=== PATIENT | female | born 1970 | race Caucasian/White ===

== ENCOUNTER → 2018-07-24 13:32 | Outpatient (REF) | payer OTHER, SELFPAY | LOC: LAB 13:32 | PROVIDERS: PCP Nurse Practitioner; Visit Provider Otolaryngology | DX: J32.8 Other chronic sinusitis (principal); J34.0 Abscess, furuncle and carbuncle of nose | CPT/HCPCS: 87070; 87147 ==

== ENCOUNTER 2023-11-06 13:05 | Emergency (ER) | payer OTHER, SELFPAY ==
[2023-11-06] VITALS (16 sets, daily range): BP systolic 131–198; BP diastolic 68–95; PULSE 52–72; RESP 18; TEMP 36.6–36.9; O2SAT 93–99; BMI 36.8
--- NOTE | 2023-11-06 13:26 | DI.CT.S_ITS ---
PROCEDURE: CT HEAD/BRAIN WO CON INDICATIONS: severe headache TECHNIQUE: Noncontrast 4.5 mm thick angled axial sections acquired from the foramen magnum to the vertex, with coronal and sagittal reformats. For radiation dose reduction, the following was used: automated exposure control, adjustment of mA and/or kV according to patient size. COMPARISON: None. FINDINGS: Image quality: Diagnostic CSF spaces: Basal cisterns are patent. Lateral ventricles are symmetric. Volume: Generally maintained. Brain: No intracranial hemorrhage. Nassar-white differentiation is grossly maintained. Craniofacial structures: Empty sella incidentally noted. No significant craniofacial abnormality where visualized. IMPRESSION: No acute intracranial abnormality. If there is high concern for parenchymal pathology, consider further evaluation with MRI. Dictated by: Fabio Lindsey M.D. on 11/06/2023 at 14:27 Approved by: Fabio Lindsey M.D. on 11/06/2023 at 14:28
[2023-11-06 14:56] LABS: INR 1.2 (0.9-1.3); Prothrombin Time 13.4 SECONDS (9.4-12.5)
[2023-11-06 14:58] LABS: Add Manual Diff / Slide Review NO; Basophils Absolute Auto 100 /uL (0-100); Basophils Percent Auto 1.1 % (0-2); Eosinophils Absolute Auto 100 /uL (0-450); Eosinophils Percent Auto 1.7 % (2-4); Hematocrit 39.8 % (36-46); Hemoglobin 13.6 g/dL (12.0-16.0); Lymphocytes Absolute Auto 1900 /uL (1100-4500); Lymphocytes Percent Auto 24.3 % (25-40); Mean Corpuscular HGB Conc 34.2 % (30-36); Mean Corpuscular Hemoglobin 29.6 PG (26-34); Mean Corpuscular Volume 86.4 fL (80-100); Monocytes Absolute Auto 700 /uL (0-900); Monocytes Percent Auto 8.4 % (3-14); Neutrophils Absolute Auto 5200 /uL (1500-7000); Neutrophils Percent Auto 64.5 % (50-75); Platelet Count 184 X10^3/uL (150-400); Red Cell Distribution Width 13.6 % (11.6-14.8)
[2023-11-06 14:59] LABS: PTT Partial Thromboplastin Tim 36 SECONDS (25.1-36.5)
--- NOTE | 2023-11-06 15:01 | PC.NURSE ---
patient comes in with complaints of headache and hx of ARTEAGA with migrain. She has been having headaches, vertigo, numbness in left face, L eye blurry vision, and reported trouble with saying huckleberry. She says this is similar to a migraine/ stroke that she had 11 years ago.
[2023-11-06 15:14] LABS: UR Morphine/Opiate cutoff 300 Negative (Negative); Ur Creatinine Normal (Normal); Ur Specific Gravity Normal (Normal); Urine Amphetamines Negative (Negative); Urine Barbiturates Negative (Negative); Urine Benzodiazepines Negative (Negative); Urine Cocaine Negative (Negative); Urine MDMA Negative (Negative); Urine Methadone Negative (Negative); Urine Methamphetamines Negative (Negative); Urine Oxycodone Negative (Negative); Urine Phencyclidine Negative (Negative); Urine Tetrahydrocannabinol Negative (Negative); Urine Tricyclic Antidepressant Negative (Negative); Urine pH Normal (Normal)
[2023-11-06 15:26] LABS: COVID19 -Nasal RAPID Negative (Negative)
--- NOTE | 2023-11-06 15:29 | ED_ITS ---
HPI - Neuro Symptoms/Deficit General Chief Complaint: Neuro Symptoms/Deficit Stated Complaint: slurred speech, BP 220/110 Time Seen by Provider: 11/06/23 13:25 Source: patient Mode of arrival: Wheelchair History of Present Illness HPI Narrative: Patient is a 53-year-old female history of complicated migraines, hypertension presenting today with ongoing migraine headache. She reports that she really had a migraine headache and a number of years Botox was working. She says that her pain tolerance got to be so high she did not really know that she was having migraines until she had slurring of speech and visual changes. She reports that 5 days ago she started a migraine headache and some visual changes she slept for about 15 hours. She has had some ongoing slurring of speech and today she noted some left facial numbness. This is not uncommon for her migraine headaches. This happened to her regularly. She was followed by Neurology. She has no numbness tingling or weakness. I do not appreciate any slurring of speech upon questioning. No significant nausea or vomiting. She overall appears well she has not had any fever chills or neck pain. On Anticoagulants: No (81mg aspirin) Related Data Previous Rx's Medication Instructions Recorded rizatriptan 10 mg tablet 10 mg PO .COMPLEX PRN migraine 01/22/18 headache #12 tabs verapamil 240 mg 24 hr 240 mg PO QDAY #90 caps 02/12/18 capsule,extended release onabotulinumtoxinA 200 unit 200 unit IM .COMPLEX #1 ea 03/18/18 solution for injection (Botox) candesartan 16 mg tablet 16 mg PO DAILY #30 tabs 08/06/18 candesartan 16 mg tablet 16 mg PO DAILY #30 tabs 08/06/18 Allergies Allergy/AdvReac Type Severity Reaction Status Date / Time topiramate [From Topamax] Allergy Mild Verified 02/12/18 13:06 Sulfa (Sulfonamide Allergy ITCHING Verified 11/06/23 13:10 Antibiotics) MORPHINE Allergy Mild Uncoded 02/12/18 13:06 HAYFEVER Allergy Unknown Uncoded 02/12/18 13:06 Review of Systems Hematologic/Lymphatic On Anticoagulants: No (81mg aspirin) Patient History Social History Smoking Status: Former smoker Smoking Status: Former smoker alcohol intake frequency: holidays/special occasions only Substance Use Type: does not use Exam Initial Vital Signs Initial Vital Signs: Vital Signs Temperature 98.5 F 11/06/23 13:10 Pulse Rate 70 11/06/23 13:10 Respiratory Rate 18 11/06/23 13:10 Blood Pressure 198/95 H 11/06/23 13:10 Pulse Oximetry 99 11/06/23 13:10 Oxygen Delivery Method Room Air 11/06/23 13:10 GENERAL: Alert pleasant well-appearing 53-year-old female and in no acute distress. HEENT: Head atraumatic,EOMI, pupils reactive, face symmetric, moist mucous membranes CARDIOVASCULAR: Regular rate and rhythm without murmurs, rubs or gallops. RESPIRATORY: Breath sounds equal bilaterally, no wheezes rales or rhonchi. ABDOMEN: Soft, nontender. Normoactive bowel sounds all 4 quadrants. No guarding or rebound. EXTREMITIES: Normal range of motion, no clubbing or edema. Neurovascularly intact NEUROLOGICAL: Alert and oriented x4.Normal gait and speech. Cranial nerves II through XII grossly intact. Good [id number], good [id number], strength equal bilaterally, no dysarthria or aphasia, sensation in tact to soft touch bilaterally, no visual changes, no facial droop SKIN: Warm, dry, no laceration, no petechiae, no rashes or lesions. Scores NIH Stroke Scale Level of Conciousness: Alert, keenly responsive Ask month/age: Answers both questions correctly. Open/close eyes, close hand: Performs both tasks correctly Best gaze horizontal: Normal Visual tellez: No visual loss Facial palsy: Normal symetrical movement Left arm drift: No drift for full 10 sec Right arm drift: No drift for full 10 sec Left leg drift: No drift for full 5 sec Right leg drift: No drift for full 5 sec Limb ataxia: Absent Sensory on face/arms/legs: Normal, no sensory loss Best language: No aphasia, normal Dysarthria: Normal Extinction or inattention: No abnormality Total NIH Stroke scale score: 0 Course Orders Ordered: Discontinued Medications Diphenhydramine HCl (Diphenhydramine 50 Mg/Ml Vial) 25 mg IV NOW ONE Stop: 11/06/23 13:27 Last Admin: 11/06/23 15:34 Dose: 25 mg Documented By: SPF Sodium Chloride (Normal Saline 0.9%) 1,000 mls @ 1,000 mls/hr IV BOLUS ONE Stop: 11/06/23 14:25 Last Infusion: 11/06/23 17:04 Dose: Infused Documented By: Admin: 11/06/23 15:33 Dose: 1,000 mls/hr Documented By: KRISTIAN Ketorolac Tromethamine (Ketorolac 30 Mg/Ml Vial) 15 mg IV NOW ONE Stop: 11/06/23 13:27 Last Admin: 11/06/23 15:34 Dose: 15 mg Documented By: KRISTIAN Prochlorperazine (Prochlorperazine 10 Mg/2 Ml Vial) 10 mg IV NOW ONE Stop: 11/06/23 13:27 Last Admin: 11/06/23 15:42 Dose: 10 mg Documented By: KRISTIAN Vital Signs Vital signs: Vital Signs - 8 hr 11/06/23 13:10 Temperature 98.5 F Pulse Rate 70 Respiratory Rate 18 Blood Pressure 198/95 H Pulse Oximetry 99 Oxygen Delivery Method Room Air MDM - Neuro Symptoms/Deficit Lab Data 11/06/23 14:39 11/06/23 14:39 Labs: Lab Results 11/06/23 11/06/23 11/06/23 Range/Units 14:15 14:15 14:15 WBC (4.5-11.0) X10^3/uL RBC (4.0-5.2) X10^6/uL Hgb (12.0-16.0) g/dL Hct (36-46) % MCV (80-100) fL MCH (26-34) PG MCHC (30-36) % RDW (11.6-14.8) % Plt Count (150-400) X10^3/uL Neut % (Auto) (50-75) % Lymph % (Auto) (25-40) % Ransom % (Auto) (3-14) % Eos % (Auto) (2-4) % Baso % (Auto) (0-2) % Neut # (Auto) (6372-2352) /uL Lymph # (Auto) (1202-4004) /uL Ransom # (Auto) (0-900) /uL Eos # (Auto) (0-450) /uL Baso # (Auto) (0-100) /uL PT (9.4-12.5) SECONDS INR (0.9-1.3) APTT (25.1-36.5) SECONDS Sodium (137-145) mmol/L Potassium (3.4-5.1) mmol/L Chloride (98-107) mmol/L Carbon Dioxide (22-32) mmol/L BUN (7-17) mg/dL Creatinine (0.52-1.04) mg/dL Estimated GFR (>60) mL/min BUN/Creatinine Ratio (6-22) Glucose (70-100) mg/dL Calcium (8.4-10.2) mg/dL Total Bilirubin (0.2-1.3) mg/dL AST (14-36) IU/L ALT (<35) IU/L Alkaline Phosphatase (38-126) U/L Total Creatine Kinase (30-135) U/L Troponin I (0.01-0.034) ng/mL Total Protein (6.3-8.2) g/dL Albumin (3.5-5.0) g/dL Globulin (1.7-4.1) g/dL Albumin/Globulin Ratio (1.0-2.8) Urine Color Cancelled Urine Appearance Cancelled Urine pH Cancelled Ur Specific [place] Cancelled Urine Protein Cancelled Urine Glucose (UA) Cancelled Urine Ketones Cancelled Urine Occult Blood Cancelled Urine Nitrate Cancelled Urine Bilirubin Cancelled Urine Urobilinogen Cancelled Ur Leukocyte Esterase Cancelled Urine RBC None seen Cancelled (0-5/HPF) Urine WBC 1-5/hpf Cancelled (0-5/HPF) Ur Squamous Epith Cells 1-5 /hpf (0-5/HPF) Ur Transition Epith Cell Ur Renal Epithelial Cell Calcium Oxalate Crystal Uric Acid Crystals Triple Phos Crystals Other Crystals Amorphous Sediment Urine Bacteria (None) Hyaline Casts Granular Casts RBC Casts WBC Casts Other Casts Urine Mucus Urine Trichomonas Urine Yeast Urine Sperm Ur Culture Indicated? Micro UA Comment Vol Urine Centrifuged U Opiates 300ng/mL cut (Negative) Ur Oxycodone Screen (Negative) Urine Methadone Screen (Negative) Ur Barbiturates Screen (Negative) U Tricyclic Antidepress (Negative) Ur Phencyclidine Scrn (Negative) Ur Amphetamines Screen (Negative) U Methamphetamines Scrn (Negative) Ur MDMA Scrn (Ecstasy) (Negative) U Benzodiazepines Scrn (Negative) Urine Cocaine Screen (Negative) U Marijuana (THC) Screen (Negative) Urine Specific [place] (Normal) Ethyl Alcohol ( - 10) mg/dL Ur Creatinine (Normal) SARS-CoV-2 (PCR) (Negative) 11/06/23 11/06/23 11/06/23 Range/Units 14:15 14:15 14:15 WBC (4.5-11.0) X10^3/uL RBC (4.0-5.2) X10^6/uL Hgb (12.0-16.0) g/dL Hct (36-46) % MCV (80-100) fL MCH (26-34) PG MCHC (30-36) % RDW (11.6-14.8) % Plt Count (150-400) X10^3/uL Neut % (Auto) (50-75) % Lymph % (Auto) (25-40) % Ransom % (Auto) (3-14) % Eos % (Auto) (2-4) % Baso % (Auto) (0-2) % Neut # (Auto) (4179-4804) /uL Lymph # (Auto) (9159-3553) /uL Ransom # (Auto) (0-900) /uL Eos # (Auto) (0-450) /uL Baso # (Auto) (0-100) /uL PT (9.4-12.5) SECONDS INR (0.9-1.3) APTT (25.1-36.5) SECONDS Sodium (137-145) mmol/L Potassium (3.4-5.1) mmol/L Chloride (98-107) mmol/L Carbon Dioxide (22-32) mmol/L BUN (7-17) mg/dL Creatinine (0.52-1.04) mg/dL Estimated GFR (>60) mL/min BUN/Creatinine Ratio (6-22) Glucose (70-100) mg/dL Calcium (8.4-10.2) mg/dL Total Bilirubin (0.2-1.3) mg/dL AST (14-36) IU/L ALT (<35) IU/L Alkaline Phosphatase (38-126) U/L Total Creatine Kinase (30-135) U/L Troponin I (0.01-0.034) ng/mL Total Protein (6.3-8.2) g/dL Albumin (3.5-5.0) g/dL Globulin (1.7-4.1) g/dL Albumin/Globulin Ratio (1.0-2.8) Urine Color Urine Appearance Urine pH Ur Specific [place] Urine Protein Urine Glucose (UA) Urine Ketones Urine Occult Blood Urine Nitrate Urine Bilirubin Urine Urobilinogen Ur Leukocyte Esterase Urine RBC (0-5/HPF) Urine WBC (0-5/HPF) Ur Squamous Epith Cells Cancelled (0-5/HPF) Ur Transition Epith Cell Cancelled Ur Renal Epithelial Cell Cancelled Calcium Oxalate Crystal Cancelled Uric Acid Crystals Cancelled Triple Phos Crystals Cancelled Other Crystals Cancelled Amorphous Sediment Cancelled Urine Bacteria None seen Cancelled (None) Hyaline Casts Cancelled Granular Casts Cancelled RBC Casts Cancelled WBC Casts Cancelled Other Casts Cancelled Urine Mucus Cancelled Urine Trichomonas Cancelled Urine Yeast Cancelled Urine Sperm Cancelled Ur Culture Indicated? Specimen cultured Cancelled Micro UA Comment Cancelled Vol Urine Centrifuged 10ml (spun) U Opiates 300ng/mL cut (Negative) Ur Oxycodone Screen (Negative) Urine Methadone Screen (Negative) Ur Barbiturates Screen (Negative) U Tricyclic Antidepress (Negative) Ur Phencyclidine Scrn (Negative) Ur Amphetamines Screen (Negative) U Methamphetamines Scrn (Negative) Ur MDMA Scrn (Ecstasy) (Negative) U Benzodiazepines Scrn (Negative) Urine Cocaine Screen (Negative) U Marijuana (THC) Screen (Negative) Urine Specific [place] (Normal) Ethyl Alcohol ( - 10) mg/dL Ur Creatinine (Normal) SARS-CoV-2 (PCR) (Negative) 11/06/23 11/06/23 11/06/23 Range/Units 14:15 14:39 14:59 WBC 8.0 (4.5-11.0) X10^3/uL RBC 4.60 (4.0-5.2) X10^6/uL Hgb 13.6 (12.0-16.0) g/dL Hct 39.8 (36-46) % MCV 86.4 (80-100) fL MCH 29.6 (26-34) PG MCHC 34.2 (30-36) % RDW 13.6 (11.6-14.8) % Plt Count 184 (150-400) X10^3/uL Neut % (Auto) 64.5 (50-75) % Lymph % (Auto) 24.3 L (25-40) % Ransom % (Auto) 8.4 (3-14) % Eos % (Auto) 1.7 L (2-4) % Baso % (Auto) 1.1 (0-2) % Neut # (Auto) 5200 (3669-8541) /uL Lymph # (Auto) 1900 (7705-1679) /uL Ransom # (Auto) 700 (0-900) /uL Eos # (Auto) 100 (0-450) /uL Baso # (Auto) 100 (0-100) /uL PT 13.4 H (9.4-12.5) SECONDS INR 1.2 (0.9-1.3) APTT 36 (25.1-36.5) SECONDS Sodium 141 (137-145) mmol/L Potassium 3.7 (3.4-5.1) mmol/L Chloride 106 (98-107) mmol/L Carbon Dioxide 27 (22-32) mmol/L BUN 13 (7-17) mg/dL Creatinine 0.73 (0.52-1.04) mg/dL Estimated GFR > 60 (>60) mL/min BUN/Creatinine Ratio 17.8 (6-22) Glucose 86 (70-100) mg/dL Calcium 9.5 (8.4-10.2) mg/dL Total Bilirubin 0.8 (0.2-1.3) mg/dL AST 27 (14-36) IU/L ALT 26 (<35) IU/L Alkaline Phosphatase 103 (38-126) U/L Total Creatine Kinase 56 (30-135) U/L Troponin I < 0.012 (0.01-0.034) ng/mL Total Protein 7.3 (6.3-8.2) g/dL Albumin 4.5 (3.5-5.0) g/dL Globulin 2.8 (1.7-4.1) g/dL Albumin/Globulin Ratio 1.6 (1.0-2.8) Urine Color Urine Appearance Urine pH Normal Ur Specific [place] Urine Protein Urine Glucose (UA) Urine Ketones Urine Occult Blood Urine Nitrate Urine Bilirubin Urine Urobilinogen Ur Leukocyte Esterase Urine RBC (0-5/HPF) Urine WBC (0-5/HPF) Ur Squamous Epith Cells (0-5/HPF) Ur Transition Epith Cell Ur Renal Epithelial Cell Calcium Oxalate Crystal Uric Acid Crystals Triple Phos Crystals Other Crystals Amorphous Sediment Urine Bacteria (None) Hyaline Casts Granular Casts RBC Casts WBC Casts Other Casts Urine Mucus Urine Trichomonas Urine Yeast Urine Sperm Ur Culture Indicated? Micro UA Comment Vol Urine Centrifuged Cancelled U Opiates 300ng/mL cut Negative (Negative) Ur Oxycodone Screen Negative (Negative) Urine Methadone Screen Negative (Negative) Ur Barbiturates Screen Negative (Negative) U Tricyclic Antidepress Negative (Negative) Ur Phencyclidine Scrn Negative (Negative) Ur Amphetamines Screen Negative (Negative) U Methamphetamines Scrn Negative (Negative) Ur MDMA Scrn (Ecstasy) Negative (Negative) U Benzodiazepines Scrn Negative (Negative) Urine Cocaine Screen Negative (Negative) U Marijuana (THC) Screen Negative (Negative) Urine Specific [place] Normal (Normal) Ethyl Alcohol < 10 ( - 10) mg/dL Ur Creatinine Normal (Normal) SARS-CoV-2 (PCR) Negative (Negative) Urine Dip Bedside Urine Glucose Negative Bedside Urine Bilirubin - Negative Bedside Urine Ketone - Negative Urine Specific [place] 1.010 Bedside Urine Occult Blood - Negative Bedside Urine pH 6.0 Bedside Urine Protein - Negative Bedside Urine Urobilinogen - Negative Bedside Urine Nitrite - Negative Bedside Urine Leukocytes + [address] scan - head: Radiologist's Impression: PROCEDURE: CT HEAD/BRAIN WO CON INDICATIONS: severe headache TECHNIQUE: Noncontrast 4.5 mm thick angled axial sections acquired from the foramen magnum to the vertex, with coronal and sagittal reformats. For radiation dose reduction, the following was used: automated exposure control, adjustment of mA and/or kV according to patient size. COMPARISON: None. FINDINGS: Image quality: Diagnostic CSF spaces: Basal cisterns are patent. Lateral ventricles are symmetric. Volume: Generally maintained. Brain: No intracranial hemorrhage. Nassar-white differentiation is grossly maintained. Craniofacial structures: Empty sella incidentally noted. No significant craniofacial abnormality where visualized. IMPRESSION: No acute intracranial abnormality. If there is high concern for parenchymal pathology, consider further evaluation with MRI. Dictated by: Fabio Lindsey M.D. on 11/06/2023 at 14:27 Approved by: Fabio Lindsey M.D. on 11/06/2023 at 14:28 ECG Data Attestation: I personally reviewed and interpreted this ECG as follows: Prior ECG tracings: not available for review Interpretation: Normal sinus rhythm rate 61 CO interval 218 QRS [address] changes T-wave inversion noted in lead 3 only no priors to compare MDM Narrative Medical decision making narrative: Patient 53-year-old female history of atypical migraines presents today with what sounds like a migraine headache ongoing for the last 5 days. She does have some atypical symptoms of blurry vision and some left facial numbness which she has had previously. She has no other focal deficits she reports that she feels like her speech is slurring but do not appreciate slurring of speech. She is NIH stroke scale of 0. She overall appears well but states that she does not feel right. Blood work has been reviewed she has no leukocytosis anemia electrolyte abnormality or GEOVANI Head CT does not show any intracranial hemorrhage or acute abnormality EKG has been reviewed as above Patient has a history of atypical migraines NIH stroke scale of 0. She has given a migraine cocktail and overall feels significantly better feels ready able to go home. I suspect that this is an atypical migraine she has had them previously. No evidence of stroke. She has no fever neck pain or leukocytosis to suggest an infectious process. Discharge Plan Departure Patient Disposition: Home Clinical Impression: Atypical migraine Instructions: Migraine -- Adult Activity Restrictions/Additional Instructions: *You have been diagnosed with atypical migraine *What to do: At this time I am happy that you are feeling better. Sorry that you have suffered a migraine. I do recommend that you may need to Re touch base with Neurology *Continue to take medications as directed *Follow up with your primary care provider in 2-3 days or call [phone] *Return to ER if you should have worsening headache numbness tingling weakness persistent vomiting or any new, worsening or concerning symptoms Prescriptions: No Action onabotulinumtoxinA [Botox] 200 unit recon soln 200 unit IM .COMPLEX Qty: 1 3RF Rx Instructions: 200 unit IM Per FDA approved protocol for chronic migraine; candesartan 16 mg tablet 16 mg PO DAILY Qty: 30 0RF Rx Instructions: Take 1 tablet by mouth once a day candesartan 16 mg tablet 16 mg PO DAILY Qty: 30 3RF Rx Instructions: Take one tablet by mouth daily rizatriptan 10 mg tablet 10 mg PO .COMPLEX PRN (Reason: migraine headache) Qty: 12 11RF Rx Instructions: 1 at onset, may repeat after 2 hours. verapamil 240 mg capsule,ext rel. pellets 24 hr 240 mg PO QDAY Qty: 90 3RF Referrals: Antonette Araujo ARNP [Primary Care Provider] - Stand Alone Forms: Patient Portal/API
[2023-11-06] MEDS: SODIUM CHLORIDE 0.9% 1,000 ML 1000 ML IV (15:33)
[2023-11-06] MEDS: diphenhydrAMINE 50 MG/ML VIAL 25 MG IV (15:34)
[2023-11-06] MEDS: KETOROLAC 30 MG/ML VIAL 15 MG IV (15:34)
[2023-11-06] MEDS: PROCHLORPERAZINE 10 MG/2 ML VIAL IV (15:42)
[2023-11-06 15:43] LABS: Bacteria Urine None Seen; Culture Indicated Urine Specimen Cultured; RBC Urine None Seen (0-5/HPF); Squamous Epithelial Cell Urine 1-5 /HPF (0-5/HPF); Urine Volume 10mL (spun); WBC Urine 1-5/HPF (0-5/HPF)
--- NOTE | 2023-11-06 16:19 | PC.NURSE ---
Pt reports migraine the past two days which has been the worst experienced in the past 11 years. 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
[2023-11-06 16:30] LABS: Alanine Aminotransferase 26 IU/L (<35); Albumin 4.5 g/dL (3.5-5.0); Albumin Globulin Ratio 1.6 (1.0-2.8); Alkaline Phosphatase 103 U/L (38-126); Aspartate Aminotransferase 27 IU/L (14-36); BUN Creatinine Ratio 17.8 (6-22); Bilirubin Total 0.8 mg/dL (0.2-1.3); Blood Urea Nitrogen 13 mg/dL (7-17); Calcium 9.5 mg/dL (8.4-10.2); Carbon Dioxide 27 mmol/L (22-32); Chloride 106 mmol/L (98-107); Creatine Kinase 56 U/L (30-135); Estimated Glomerular Filt Rate > 60 mL/min (>60); Ethanol (ETOH) < 10 mg/dL; Globulin 2.8 g/dL (1.7-4.1); Glucose 86 mg/dL (70-100); HEMOLYSIS < 15 (0-50); Potassium 3.7 mmol/L (3.4-5.1); Sodium 141 mmol/L (137-145); Total Protein 7.3 g/dL (6.3-8.2)
[2023-11-06 16:41] LABS: Troponin I < 0.012 ng/mL (0.01-0.034)
== END 2023-11-06 17:39 | disposition home or self-care (01) ==
PROVIDERS: Emergency Provider Emergency Medicine; PCP Nurse Practitioner
DX: G43.809 Other migraine, not intractable, without status migrainosus (principal); R47.81 Slurred speech; I10 Essential (primary) hypertension; R20.0 Anesthesia of skin; Z11.52 Encounter for screening for COVID-19; Z87.891 Personal history of nicotine dependence
CPT/HCPCS: 36415; 70450; 80053; 80305; 80320; 81003; 81015; 82550; 84484; 85025; 85610; 85730; 87086; 87635; 93005; 96374; 96375; 99284; J0780; J1200; J1885

== ENCOUNTER → 2024-12-16 11:54 | Outpatient (CLI) | payer OTHER, SELFPAY ==
--- NOTE | 2024-12-16 11:56 | DI.RAD.S_ITS ---
PROCEDURE: XR SHOULDER LT MIN 2V INDICATIONS: weakness/distal ulna tender foosh 6d INSURANCE ADVISER TECHNIQUE: 3 views of the shoulder were acquired. COMPARISON: None. FINDINGS: Bones: No fractures or dislocations. No suspicious bony lesions. Visualized ribs appear intact. Soft tissues: No suspicious soft tissue calcifications. IMPRESSION: No acute bony abnormality. Dictated by: Bernardino Pandey M.D. on 12/16/2024 at 12:38 Approved by: Bernardino Pandey M.D. on 12/16/2024 at 12:38
--- NOTE | 2024-12-16 11:56 | DI.RAD.S_ITS ---
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 COMPARISON: None. FINDINGS: Bones: No fractures or dislocations. No suspicious bony lesions. Soft tissues: No suspicious soft tissue calcifications. IMPRESSION: No acute bony abnormality. If hidden fracture is clinically suspected follow-up by delayed films or advanced imaging such as MR scanning may become necessary. Dictated by: Bernardino Pandey M.D. on 12/16/2024 at 12:38 Approved by: Bernardino Pandey M.D. on 12/16/2024 at 12:39
== END ==
PROVIDERS: PCP Nurse Practitioner; Referring Provider Student in an Organized Health Care Education/Training Program; Visit Provider Student in an Organized Health Care Education/Training Program
DX: M25.532 Pain in left wrist (principal); R29.898 Other symptoms and signs involving the musculoskeletal system
CPT/HCPCS: 73030; 73110